=== PATIENT | female | born 1965 | race Caucasian/White ===

== ENCOUNTER 2018-03-20 12:19 | Inpatient (IN) | payer BC ==
[~2018-03-20] VITALS: Ht 170.2 cm; Wt 88.2 kg
[~2018-03-20 12:19] MED LIST: ALBU8.5H8 IH; ALPR0.25 PO; ALPR1TAB2 PO; AMLO5TAB2 PO; AZIT250T PO; BENZ100C PO; CETI10TA22 PO; CIPR500T94 PO; DEXT30CA6 PO; DIPH25CA58 PO; HYDR-2680 PO; ISOS60TA2 PO; LORA10TA68 PO; METR500T PO; NYST15CR TP; OMEP20TA63 PO; ONDA4TAB10 PO; ONDA4TAB10 SL; PRED20TA PO; PRED50TA PO; PROM118S5 PO; TRIA15CR50 TP
--- NOTE | 2018-03-20 12:31 | ED.ADGEN ---
Past History Past Medical History: Asthma, Cancer, Hypertension, Other Past Surgical History: Appendectomy, , Hysterectomy, Other Alcohol Use: None Drug Use: None Adult General Chief Complaint Chief Complaint chest pain, left arm numbness HPI HPI She has a prior history of TIA worked up 2 years ago at . Thirty minutes prior to presentation while at the library, she noted onset of left-sided numbness and weakness with difficulty with her speech. She also noted substernal chest pain without any radiation or shortness of breath. Review of Systems Review of Systems Constitutional: Denies fever or chills Eyes: Denies change in visual acuity, redness, or eye pain HENT: Denies nasal congestion or sore throat Respiratory: Denies cough or shortness of breath Cardiovascular: Chest pain-non radiating, no palpitations GI: Denies abdominal pain, nausea, vomiting, bloody stools or diarrhea : Denies dysuria or hematuria Musculoskeletal: Denies back pain or joint pain Integument: Denies rash or skin lesions Neurologic: Denies headache, with LUE weakness with numbness Endocrine: Denies polyuria or polydipsia All other systems were reviewed and found to be within normal limits, except as documented in this note. Current Medications Current Medications Current Medications Medications (Trade) Dose Ordered Sig/Steph Start Time Stop Time Status Last Admin Dose Admin Acetaminophen (Tylenol) 1,000 mg 1X ONCE 03/20/18 15:15 03/20/18 15:16 DC 03/20/18 14:54 1,000 MG Aspirin (Children'S Aspirin) 324 mg 1X ONCE 03/20/18 15:30 03/20/18 15:31 DC 03/20/18 15:51 324 MG Allergies Allergies Allergies Coded Allergies Type Severity Reaction Last Updated Verified Iodine and Iodide Containing Produc Allergy Severe 05/03/15 No Physical Exam Physical Exam Constitutional: Well developed, well nourished, no acute distress, non-toxic appearance. HENT: Normocephalic, atraumatic, bilateral external ears normal, oropharynx moist, no oral exudates, nose normal. Eyes: PERRLA, EOMI, conjunctiva normal, no discharge. Neck: Normal range of motion, no tenderness, supple, no stridor. Cardiovascular:Heart rate regular rhythm, no murmur Lungs & Thorax: Bilateral breath sounds clear to auscultation Abdomen: Bowel sounds normal, soft, no tenderness, no masses, no pulsatile masses. Skin: Warm, dry, no erythema, no rash. Back: No tenderness, no CVA tenderness. Extremities: No tenderness, no cyanosis, no clubbing, ROM intact, no edema. Neurologic: Alert and oriented X 3, normal motor function, normal sensory function, no focal deficits noted. Speech is normal. Cranial nerves II through XII are intact. Strength is 5/5 right upper extremity 4/5 left upper extremity on flute grinder testing. Patient has no pronator drift. Finger nose finger is intact. Sensation is intact to light touch and position sense bilateral upper an lower extremities equal and symmetric. Patient has no lower extremity drift. NIH score is 0. Psychologic: Affect normal, judgement normal, mood normal. Current Patient Data Vital Signs Vital Signs Date Time Temp Pulse Resp B/P (MAP) Pulse Ox O2 Delivery O2 Flow Rate FiO2 03/20/18 15:40 68 20 132/81 (98) 97 03/20/18 15:00 Room Air 03/20/18 12:21 98.5 Lab Results Laboratory Tests Test 03/20/18 12:39 03/20/18 12:40 03/20/18 14:53 Glucose (Fingerstick) 114 mg/dL (70-99) H White Blood Count 7.3 x10^3/uL (4.0-11.0) Red Blood Count 3.83 x10^6/uL (3.50-5.40) Hemoglobin 12.1 g/dL (12.0-15.5) Hematocrit 36.3 % (36.0-47.0) Mean Corpuscular Volume 95 fL (79-100) Mean Corpuscular Hemoglobin 32 pg (25-35) Mean Corpuscular Hemoglobin Concent 33 g/dL (31-37) Red Cell Distribution Width 14.4 % (11.5-14.5) Platelet Count 151 x10^3/uL (140-400) Neutrophils (%) (Auto) 50 % (31-73) Lymphocytes (%) (Auto) 43 % (24-48) Monocytes (%) (Auto) 4 % (0-9) Eosinophils (%) (Auto) 2 % (0-3) Basophils (%) (Auto) 1 % (0-3) Neutrophils # (Auto) 3.6 x10^3uL (1.8-7.7) Lymphocytes # (Auto) 3.2 x10^3/uL (1.0-4.8) Monocytes # (Auto) 0.3 x10^3/uL (0.0-1.1) Eosinophils # (Auto) 0.2 x10^3/uL (0.0-0.7) Basophils # (Auto) 0.0 x10^3/uL (0.0-0.2) D-Dimer (Corrie) 0.34 mg/L (0.00-0.50) Sodium Level 141 mmol/L (136-145) Potassium Level 3.6 mmol/L (3.5-5.1) Chloride Level 108 mmol/L (98-107) H Carbon Dioxide Level 27 mmol/L (21-32) Anion Gap 6 (6-14) Blood Urea Nitrogen 14 mg/dL (7-20) Creatinine 1.2 mg/dL (0.6-1.0) H Estimated GFR (Cockcroft-Gault) 47.0 BUN/Creatinine Ratio 12 (6-20) Glucose Level 122 mg/dL (70-99) H Calcium Level 8.7 mg/dL (8.5-10.1) Total Bilirubin 0.8 mg/dL (0.2-1.0) Aspartate Amino Transferase (AST) 56 U/L (15-37) H Alanine Aminotransferase (ALT) 22 U/L (14-59) Alkaline Phosphatase 110 U/L (46-116) Troponin I Quantitative < 0.017 ng/mL (0-0.055) LI-Dgs-K-Type Natriuretic Peptide 1647 pg/mL (0-124) H Total Protein 7.2 g/dL (6.4-8.2) Albumin 3.7 g/dL (3.4-5.0) Albumin/Globulin Ratio 1.1 (1.0-1.7) Lipase 258 U/L (73-393) Urine Collection Type Unknown Urine Color Yellow Urine Clarity Clear Urine pH 6.0 Urine Specific [place] 1.015 Urine Protein Neg (NEG-TRACE) Urine Glucose (UA) Neg mg/dL (NEG) Urine Ketones (Stick) Neg mg/dL (NEG) Urine Blood Neg (NEG) Urine Nitrite Neg (NEG) Urine Bilirubin Neg (NEG) Urine Urobilinogen Dipstick 0.2 mg/dL (0.2 mg/dL) Urine Leukocyte Esterase Neg (NEG) Urine RBC Occ /HPF (0-2) Urine WBC 1-4 /HPF (0-4) Urine Squamous Epithelial Cells None /LPF Urine Bacteria 0 /HPF (0-FEW) Urine Mucus Slight /LPF EKG EKG 12:21 ECG NSR @ 71 LVH, LAFB, T wave changes and occasion PVCs Radiology/Procedures Radiology/Procedures [address] [address] IMAGING REPORT Signed PATIENT: NATHALIA MCCRAY ACCOUNT: [id number] : 1965 LOCATION: ER AGE: 52 SEX: F EXAM STATUS: PRE ER ORD. PHYSICIAN: PRACHI CHICAS MD REASON: Left UE weakness PROCEDURE: CT CODE STROKE HEAD WO CT Head W/O Contrast: History: code stroke, lt side numbness with weakness, hx of stroke Comparison: none Axial images were obtained without contrast. The aranda and white matter appears normal and symmetrical for the patients age. There is no mass effect, extraaxial fluid collections or hydrocephalus. There is no gross bleed. There is no focal loss of aranda-white matter distinction to suggest acute ischemia, i.e. stroke. Impression: No acute findings. End impression These results were called to Dr. CHICAS at the time of dictation. PQRS Compliance Statement: One or more of the following individualized dose reduction techniques were utilized for this examination: 1. Automated exposure control 2. Adjustment of the mA and/or kV according to patient size 3. Use of iterative reconstruction technique Electronically signed by: Sean Fitzpatrick III, MD (03/20/2018 12:58 PM) [facility] DICTATED AND SIGNED BY: SEAN FITZPATRICK III, MD DATE: 03/20/18 8635 CC: PRACHI CHICAS MD; AYDEN RODRIGUEZ ~ [address] [address] IMAGING REPORT Signed PATIENT: NATHALIA MCCRAY ACCOUNT: [id number] : 1965 LOCATION: ER AGE: 52 SEX: F EXAM STATUS: PRE ER ORD. PHYSICIAN: PRACHI CHICAS MD REASON: chest pain PROCEDURE: CHEST AP ONLY CHEST AP ONLY Clinical History: chest pain x 1 day, hx of strokes Technique: AP view of the chest was obtained at 03/20/2018 12:36 PM. Comparison: May 03, 2015. Findings: The cardiomediastinal silhouette is normal. The pulmonary vasculature is normal. The lungs and pleural margins are clear. Impression: No evidence of an acute cardiopulmonary process. Electronically signed by: Sean Fitzpatrick III, MD (03/20/2018 1:16 PM) [facility] DICTATED AND SIGNED BY: SEAN FITZPATRICK III, MD DATE: 03/20/18 0448 CC: PRACHI CHICAS MD; AYDEN RODRIGUEZ ~ Course & Med Decision Making Course & Med Decision Making Patient presets with chest pain, left arm numbness and weakness DDx-ACS, Pe, TIA, CVA, anxiety, conversion disorder The patient was stable in the ED. ECG and troponin showed no evidence of ACS. Noting history of left arm numbness, weakness with speech difficulty, code stroke was called. Head CT scan was unremarkable. NIH score-0 Patient's left arm symptoms waxed and waned and varied with effort. Her numbness was subjective. Labs were unremarkable. 12:[address] scan unremarkable as per Radiology Patient insisted on transfer to for further evaluation, despite available services at [facility]. 14:00 Discussed with transfer center. The patient has been admitted for similar symptoms twice in November 2017 and twice in January 2018. Patient was diagnosed with conversion disorder. doesn't have bed availability to accept transfer. 15:[address] Crump hospitalist who agreed with admission. Recommends neurology and psychiatric consultations. There is concern the patient maybe having conversion disorder. Patient was given aspirin and admitted to telemetry for further evaluation. Final Impression Final Impression Clinical Impression Chest pain Left Arm Paresthesia Dragon Disclaimer Dragon Disclaimer This electronic medical record was generated, in whole or in part, using a voice recognition dictation system. Departure Departure: Impression: Primary Impression: Paresthesia of left arm Additional Impression: Chest pain Disposition: ADMITTED INPATIENT Condition: STABLE Referrals: DIAN JOSEPH MD, CLARKE J MD Mar 20, 2018 12:31
[2018-03-20 12:52] LABS: BASO % 1 % (0-3); EOS # 0.2 x10^3/uL (0.0-0.7); EOS % 2 % (0-3); HEMATOCRIT 36.3 % (36.0-47.0); HEMOGLOBIN 12.1 g/dL (12.0-15.5); LYMPH # 3.2 x10^3/uL (1.0-4.8); LYMPH % 43 % (24-48); MEAN CORPUSCULAR HEMOGLOBIN 32 pg (25-35); MEAN CORPUSCULAR HGB CONC 33 g/dL (31-37); MEAN CORPUSCULAR VOLUME 95 fL (79-100); MONO # 0.3 x10^3/uL (0.0-1.1); MONO % 4 % (0-9); NEUT # 3.6 x10^3uL (1.8-7.7); NEUT % 50 % (31-73); PLATELET COUNT 151 x10^3/uL (140-400); RED BLOOD COUNT 3.83 x10^6/uL (3.50-5.40); RED CELL DISTRIBUTION WIDTH 14.4 % (11.5-14.5); WHITE BLOOD COUNT 7.3 x10^3/uL (4.0-11.0)
--- NOTE | 2018-03-20 13:01 | RAD ---
CT Head W/O Contrast: History: code stroke, lt side numbness with weakness, hx of stroke Comparison: none Axial images were obtained without contrast. The aranda and white matter appears normal and symmetrical for the patients age. There is no mass effect, extraaxial fluid collections or hydrocephalus. There is no gross bleed. There is no focal loss of aranda-white matter distinction to suggest acute ischemia, i.e. stroke. Impression: No acute findings. End impression These results were called to Dr. CHICAS at the time of dictation. PQRS Compliance Statement: One or more of the following individualized dose reduction techniques were utilized for this examination: 1. Automated exposure control 2. Adjustment of the mA and/or kV according to patient size 3. Use of iterative reconstruction technique Electronically signed by: Dmitriy Howe III, MD (03/20/2018 12:58 PM) [facility]
[2018-03-20 13:12] LABS: ALBUMIN 3.7 g/dL (3.4-5.0); ALBUMIN/GLOBULIN RATIO 1.1 (1.0-1.7); CALCIUM 8.7 mg/dL (8.5-10.1); CREATININE 1.2 mg/dL (0.6-1.0); POTASSIUM 3.6 mmol/L (3.5-5.1); TOTAL BILIRUBIN 0.8 mg/dL (0.2-1.0); TOTAL PROTEIN 7.2 g/dL (6.4-8.2)
--- NOTE | 2018-03-20 13:19 | RAD ---
CHEST AP ONLY Clinical History: chest pain x 1 day, hx of strokes Technique: AP view of the chest was obtained at 03/20/2018 12:36 PM. Comparison: May 03, 2015. Findings: The cardiomediastinal silhouette is normal. The pulmonary vasculature is normal. The lungs and pleural margins are clear. Impression: No evidence of an acute cardiopulmonary process. Electronically signed by: Dmitriy Howe III, MD (03/20/2018 1:16 PM) [facility]
--- NOTE | 2018-03-20 13:43 | EKG ---
[address] [address] Test Date: 2018-03-20 Test Time: 12:21:30 Pat Name: NATHALIA MCCRAY Department: Room: Gender: F Urology Nurse: MCKENZIE : 1965 Requested By: PRACHI CHICAS Order Number: [id number] Reading MD: Measurements Intervals [place] Rate: 71 P: -54 FL: 194 QRS: -31 QRSD: 108 T: -25 QT: 438 QTc: 476 Interpretive Statements SINUS RHYTHM COMPLEX(ES) WITH ABERRANT INTRAVENTRICULAR CONDUCTION ABNORMAL LEFT AXIS DEVIATION LEFT ANTERIOR FASCICULAR BLOCK LEFT VENTRICULAR HYPERTROPHY T ABNORMALITY IN INFERIOR LEADS PROLONGED QT ABNORMAL ECG RI6.01 No previous ECG available for comparison
[2018-03-20] MEDS ORDERED: ACETAMINOPHEN 500 MG TABLET PO ONE (15:15)
[2018-03-20 15:24] LABS: BACTERIA,URINE 0 /HPF (0-FEW); BILIRUBIN,URINE NEG (NEG); CLARITY,URINE CLEAR; COLOR,URINE YELLOW; GLUCOSE,URINE NEG (NEG); NITRITE,URINE NEG (NEG); RBC,URINE OCC /HPF (0-2); UROBILINOGEN,URINE 0.2 mg/dL (0.2 mg/dL)
[2018-03-20] MEDS ORDERED: ASPIRIN 81 MG TAB.CHEW PO ONE (15:30)
[2018-03-20 16:57] VITALS: BP 119/67
[2018-03-20] MEDS ORDERED: NITR0.4T22 SL (17:43)
[2018-03-20] MEDS ORDERED: ASPI-630 PO (17:43)
[2018-03-20] MEDS ORDERED: IBUP800T19 PO (17:43)
[2018-03-20] MEDS ORDERED: ALPR1TAB2 PO (17:43)
[2018-03-20] MEDS ORDERED: HYDR-2766 PO (17:43)
[2018-03-20] MEDS ORDERED: ALPRAZolam 0.5 MG TABLET PO PRN (19:30)
[2018-03-20] MEDS ORDERED: NITROGLYCERIN SUBLINGUAL 0.4 MG BOTTLE OF 25. SL PRN (19:30)
[2018-03-20] MEDS: HYDROcodone/APAP 10/325 1 TAB TABLET PO PRN (19:40)
[2018-03-20 19:54] VITALS: BP 97/58
--- NOTE | 2018-03-20 21:28 | PDOC ---
Exam Note: Marcos Note: Please also refer to the separate dictated note~for this date of service dictated separately.~Patient seen individually. Discussed the patient with Nursing staff reviewed the chart.~Reviewed interim history and current functioning. Reviewed vital signs,~Labs/ Radiology~and current medications noted below. Continue current treatment with the changes noted in the dictated addendum note Assessment: Vital Signs: Vital Signs Date Time Temp Pulse Resp B/P (MAP) Pulse Ox O2 Delivery O2 Flow Rate FiO2 03/20/18 20:10 Room Air 03/20/18 19:54 98.0 62 18 97/58 (71) 97 Labs: Laboratory Tests Test 03/20/18 12:39 03/20/18 12:40 03/20/18 14:53 Glucose (Fingerstick) 114 mg/dL (70-99) H White Blood Count 7.3 x10^3/uL (4.0-11.0) Red Blood Count 3.83 x10^6/uL (3.50-5.40) Hemoglobin 12.1 g/dL (12.0-15.5) Hematocrit 36.3 % (36.0-47.0) Mean Corpuscular Volume 95 fL (79-100) Mean Corpuscular Hemoglobin 32 pg (25-35) Mean Corpuscular Hemoglobin Concent 33 g/dL (31-37) Red Cell Distribution Width 14.4 % (11.5-14.5) Platelet Count 151 x10^3/uL (140-400) Neutrophils (%) (Auto) 50 % (31-73) Lymphocytes (%) (Auto) 43 % (24-48) Monocytes (%) (Auto) 4 % (0-9) Eosinophils (%) (Auto) 2 % (0-3) Basophils (%) (Auto) 1 % (0-3) Neutrophils # (Auto) 3.6 x10^3uL (1.8-7.7) Lymphocytes # (Auto) 3.2 x10^3/uL (1.0-4.8) Monocytes # (Auto) 0.3 x10^3/uL (0.0-1.1) Eosinophils # (Auto) 0.2 x10^3/uL (0.0-0.7) Basophils # (Auto) 0.0 x10^3/uL (0.0-0.2) D-Dimer (Corrie) 0.34 mg/L (0.00-0.50) Sodium Level 141 mmol/L (136-145) Potassium Level 3.6 mmol/L (3.5-5.1) Chloride Level 108 mmol/L (98-107) H Carbon Dioxide Level 27 mmol/L (21-32) Anion Gap 6 (6-14) Blood Urea Nitrogen 14 mg/dL (7-20) Creatinine 1.2 mg/dL (0.6-1.0) H Estimated GFR (Cockcroft-Gault) 47.0 BUN/Creatinine Ratio 12 (6-20) Glucose Level 122 mg/dL (70-99) H Calcium Level 8.7 mg/dL (8.5-10.1) Total Bilirubin 0.8 mg/dL (0.2-1.0) Aspartate Amino Transferase (AST) 56 U/L (15-37) H Alanine Aminotransferase (ALT) 22 U/L (14-59) Alkaline Phosphatase 110 U/L (46-116) Troponin I Quantitative < 0.017 ng/mL (0-0.055) DZ-Gcq-Y-Type Natriuretic Peptide 1647 pg/mL (0-124) H Total Protein 7.2 g/dL (6.4-8.2) Albumin 3.7 g/dL (3.4-5.0) Albumin/Globulin Ratio 1.1 (1.0-1.7) Lipase 258 U/L (73-393) Urine Collection Type Unknown Urine Color Yellow Urine Clarity Clear Urine pH 6.0 Urine Specific [place] 1.015 Urine Protein Neg (NEG-TRACE) Urine Glucose (UA) Neg mg/dL (NEG) Urine Ketones (Stick) Neg mg/dL (NEG) Urine Blood Neg (NEG) Urine Nitrite Neg (NEG) Urine Bilirubin Neg (NEG) Urine Urobilinogen Dipstick 0.2 mg/dL (0.2 mg/dL) Urine Leukocyte Esterase Neg (NEG) Urine RBC Occ /HPF (0-2) Urine WBC 1-4 /HPF (0-4) Urine Squamous Epithelial Cells None /LPF Urine Bacteria 0 /HPF (0-FEW) Urine Mucus Slight /LPF Current Medications: Meds: Current Medications Acetaminophen (Tylenol) 1,000 mg 1X ONCE PO Last administered on 7/28/18at 14: 54; Start 03/20/18 at 15:15; Stop 03/20/18 at 15:16; Status DC Aspirin (Children'S Aspirin) 324 mg 1X ONCE PO Last administered on 03/20/18at 15:51; Start 03/20/18 at 15:30; Stop 03/20/18 at 15:31; Status DC Nitroglycerin (Nitrostat) 0.4 mg PRN Q15MIN PRN SL CHEST PAIN; Start 03/20/18 at 19:30 Alprazolam (Xanax) 1 mg PRN QHS PRN PO ANXIETY / AGITATION; Start 03/20/18 at 19:30 Aspirin (Children'S Aspirin) 81 mg DAILYWBKFT PO ; Start 03/21/18 at 08:00 Acetaminophen/ Hydrocodone Bitart (Lortab 10/325) 1 tab PRN Q6HRS PRN PO PAIN Last administered on 03/20/18at 19:40; Start 03/20/18 at 19:30 Ibuprofen (Motrin) 800 mg DAILY PO ; Start 03/21/18 at 09:00 Pneumococcal Polyvalent Vaccine (Pneumovax 23) 0.5 ml ONCE ONCE VAX IM ; Start 03/21/18 at 09:00; Stop 03/21/18 at 09:01 Active Scripts Active Reported Ibuprofen 800 Mg Tablet 800 Mg PO DAILY NITROGLYCERIN SubLingual (Nitroglycerin) 0.4 Mg Tab.subl 0.4 Mg SL PRN PRN Xanax (Alprazolam) 1 Mg Tablet 1 Mg PO PRN QHS PRN Hydrocodone-Apap 10-325 (Hydrocodone Bit/Acetaminophen) 1 Each Tablet 1 Tab PO PRN Q6HRS PRN Aspirin 81 Mg Tab.chew 81 Mg PO DAILY I have reviewed the current psychotropics carefully including drug interactions. Risk benefit ratio favors no change other than as noted in my dictated progress note. Diagnosis: Problems: (1) Anxiety disorder (2) Bipolar affective disorder, mixed (3) Paresthesia of left arm TINY ADDISON MD Mar 20, 2018 21:28
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
[2018-03-20 22:23] VITALS: BP 107/67
[2018-03-21] MEDS: IBUPROFEN 800 MG TABLET. PO PRN ×3 (00:08→19:21)
[2018-03-21] MEDS: HYDROcodone/APAP 10/325 1 TAB TABLET PO PRN ×2 (01:40→12:46)
[2018-03-21 05:32] VITALS: BP 91/56
[2018-03-21] MEDS: ASPIRIN 81 MG TAB.CHEW PO SCH (08:42)
[2018-03-21] MEDS ORDERED: IBUPROFEN 800 MG TABLET. PO SCH (09:00)
[2018-03-21] MEDS ORDERED: PNEUMOC CONJ VACC 23-VALENT 0.5 ML VIAL. VAX IM ONE (09:00)
[2018-03-21 10:59] VITALS: BP 93/54
[2018-03-21 11:25] LABS: BASO # 0.1 x10^3/uL (0.0-0.2); BASO % 1 % (0-3); EOS # 0.1 x10^3/uL (0.0-0.7); EOS % 3 % (0-3); HEMATOCRIT 34.4 % (36.0-47.0); HEMOGLOBIN 11.5 g/dL (12.0-15.5); LYMPH # 2.3 x10^3/uL (1.0-4.8); LYMPH % 43 % (24-48); MEAN CORPUSCULAR HEMOGLOBIN 32 pg (25-35); MEAN CORPUSCULAR HGB CONC 34 g/dL (31-37); MEAN CORPUSCULAR VOLUME 95 fL (79-100); MONO # 0.3 x10^3/uL (0.0-1.1); MONO % 5 % (0-9); NEUT # 2.6 x10^3uL (1.8-7.7); NEUT % 49 % (31-73); PLATELET COUNT 140 x10^3/uL (140-400); RED CELL DISTRIBUTION WIDTH 14.8 % (11.5-14.5); WHITE BLOOD COUNT 5.4 x10^3/uL (4.0-11.0)
[2018-03-21 11:30] LABS: CALCIUM 8.3 mg/dL (8.5-10.1); POTASSIUM 4.2 mmol/L (3.5-5.1)
--- NOTE | 2018-03-21 13:08 | PDOC1 ---
History of Present Illness History of Present Illness This 52-year-old female comes emergency department complaining of speech difficulty, left arm and face numbness, left arm weakness and chest discomfort while browsing at the library. She was extensively evaluated in the emergency department her NIH score was reportedly [address] of the head and CXR were negative. The emergency department physician reports that her physical exam did change with effort throughout her ED course, that intermittently he noted her to voluntarily use the left hand while at other times she reported inability to do so. At her request he did contact who gave a history of multiple similar admissions extensively evaluated and discharge diagnosis of conversion disorder. She reports that she typically follows with however says when she called them at symptom onset they advised she go to the nearest facility for evaluation and possible transfer. She complained of sudden onset tingling on the left side of her face with associated numbness and speech difficulty/slur, also anterior chest pain and left arm weakness numbness and tingling. She's apparently had 3 prior episodes of nearly identical symptoms in the past few years and has been extensively evaluated at . Denies headache, recent stressors, depressed mood, suicidal/homicidal ideation, or recent medication change. I find the patient sitting up in bed holding her cell phone in her left hand either talking on speaker phone or dictating, when I enter her left hand is lowered to the bed and phone turned off. She says that her left arm weakness is persistent and is very eager to transfer to . Her focus on transferring to makes her somewhat of a difficult historian and I did notify her that we would call to see about bed availability. She denies any new symptoms since presented to the emergency department. The nurse taking care of her describes some mood instability as the patient has had several episodes of becoming very angry with her screaming at her and then calling her into apologize. At one point "this is how I always talk" responding to RN questioning. Her BNP was 1647 with no clinical evidence of failure, otherwise ED and morning labs and her VS have been unremarkable see below. Chief Complaint: left arm weakness Allergies: Coded Allergies: Iodine and Iodide Containing Produc (Unverified Allergy, Severe, 05/03/15) Past Medical History Cardiac: HTN Pulmonary: Asthma Heme/Onc: Cancer Psych: Anxiety, Bipolar, Other (conversion) Rheumatologic: No pertinent hx Infectious disease: No pertinent hx Dermatology: No pertinent hx Past Surgical History: Appendectomy, Hysterectomy Family History: No pertinent hx Past Social History Smoke: No Occupation: used to work at the [employer] Alcohol: none Drugs: None Review of Systems Review Of Systems Fourteen system , review of systems has been reviewed. See HPI for pertinent positives and negative responses, other leija all other systems are negative, non pertinent or non contributory Constitutional: No: Fever, Chills, Sweats Eyes: No: Blurry vision, Decreased vision, Eye Pain, Loss of vision, Photophobia ENT: No: Ear pain, Nose pain, Throat pain Respiratory: No: Cough, Shortness of breath, Wheezing Cardiovascular: No: Chest Pain, Palpitations, Orthopnea Gastrointestinal: No: Nausea, Vomiting, Abdominal Pain, Diarrhea Genitourinary: No: Dysuria, Flank Pain, Genital Discharge Musculoskeletal: YES: Muscular Weakness; No: Gait Disturbance, Joint Pain, Joint Swelling, Muscle Pain SKIN: No: Warm, Dry, No Rashes Neurological: YES: Other (HPI) Medications Current Medications Acetaminophen (Tylenol) 1,000 mg 1X ONCE PO Last administered on 03/20/18at 14: 54; Start 03/20/18 at 15:15; Stop 03/20/18 at 15:16; Status DC Aspirin (Children'S Aspirin) 324 mg 1X ONCE PO Last administered on 03/20/18at 15:51; Start 03/20/18 at 15:30; Stop 03/20/18 at 15:31; Status DC Nitroglycerin (Nitrostat) 0.4 mg PRN Q15MIN PRN SL CHEST PAIN; Start 03/20/18 at 19:30 Alprazolam (Xanax) 1 mg PRN QHS PRN PO ANXIETY / AGITATION Last administered on 03/21/18at 03:21; Start 03/20/18 at 19:30 Aspirin (Children'S Aspirin) 81 mg DAILYWBKFT PO Last administered on at 08:42; Start 03/21/18 at 08:00 Acetaminophen/ Hydrocodone Bitart (Lortab 10/325) 1 tab PRN Q6HRS PRN PO PAIN Last administered on 03/21/18at 12:46; Start 03/20/18 at 19:30 Ibuprofen (Motrin) 800 mg DAILY PO ; Start 03/21/18 at 09:00; Stop 03/21/18 at 09:00; Status DC Pneumococcal Polyvalent Vaccine (Pneumovax 23) 0.5 ml ONCE ONCE VAX IM ; Start 03/21/18 at 09:00; Stop 03/21/18 at 09:01; Status DC Ibuprofen (Motrin) 800 mg PRN Q8HRS PRN PO INFLAMMATION Last administered on at 08:42; Start 03/20/18 at 23:15 Active Scripts Active Reported Ibuprofen 800 Mg Tablet 800 Mg PO DAILY NITROGLYCERIN SubLingual (Nitroglycerin) 0.4 Mg Tab.subl 0.4 Mg SL PRN PRN Xanax (Alprazolam) 1 Mg Tablet 1 Mg PO PRN QHS PRN Hydrocodone-Apap 10-325 (Hydrocodone Bit/Acetaminophen) 1 Each Tablet 1 Tab PO PRN Q6HRS PRN Aspirin 81 Mg Tab.chew 81 Mg PO DAILY Exam Vital Signs Vital Signs Date Time Temp Pulse Resp B/P (MAP) Pulse Ox O2 Delivery O2 Flow Rate FiO2 03/21/18 12:46 96 Room Air 03/21/18 10:59 97.9 60 18 93/54 (67) General Appearance: Alert, Oriented X3, No acute distress HEENT: Atraumatic, PERRLA, EOMI, Mucous membr. moist/pink Respiratory: Clear to auscultation, Normal air movement Heart: Regular rate, No murmurs Abdominal: Normal bowel sounds, Soft, No tenderness Extremities: No clubbing, No cyanosis, No edema, Normal pulses Neuro: Other (decreased sensory at the left face as well as the left upper extremity, no active movement involving the left arm otherwise appears to be neurologically intact.) Psych/Mental Status: Other (rapid speech with flight of ideas and tangential patterns) Assessment/Plan Assessment/Plan A: Left arm paraesthesia Chest Pain h/o multiple similar evaluations dx: conversion disorder P: Observation admission-patient did request transfer to [facility] RN called and still no bed availability Neurology and Psychiatry consultations COURSE Allergies Coded Allergies Type Severity Reaction Last Updated Verified Iodine and Iodide Containing Produc Allergy Severe 05/03/15 No Laboratory Tests Test 03/20/18 14:53 03/21/18 11:15 Urine Collection Type Unknown Urine Color Yellow Urine Clarity Clear Urine pH 6.0 Urine Specific [place] 1.015 Urine Protein Neg (NEG-TRACE) Urine Glucose (UA) Neg mg/dL (NEG) Urine Ketones (Stick) Neg mg/dL (NEG) Urine Blood Neg (NEG) Urine Nitrite Neg (NEG) Urine Bilirubin Neg (NEG) Urine Urobilinogen Dipstick 0.2 mg/dL (0.2 mg/dL) Urine Leukocyte Esterase Neg (NEG) Urine RBC Occ /HPF (0-2) Urine WBC 1-4 /HPF (0-4) Urine Squamous Epithelial Cells None /LPF Urine Bacteria 0 /HPF (0-FEW) Urine Mucus Slight /LPF White Blood Count 5.4 x10^3/uL (4.0-11.0) Red Blood Count 3.60 x10^6/uL (3.50-5.40) Hemoglobin 11.5 g/dL (12.0-15.5) Hematocrit 34.4 % (36.0-47.0) Mean Corpuscular Volume 95 fL (79-100) Mean Corpuscular Hemoglobin 32 pg (25-35) Mean Corpuscular Hemoglobin Concent 34 g/dL (31-37) Red Cell Distribution Width 14.8 % (11.5-14.5) Platelet Count 140 x10^3/uL (140-400) Neutrophils (%) (Auto) 49 % (31-73) Lymphocytes (%) (Auto) 43 % (24-48) Monocytes (%) (Auto) 5 % (0-9) Eosinophils (%) (Auto) 3 % (0-3) Basophils (%) (Auto) 1 % (0-3) Neutrophils # (Auto) 2.6 x10^3uL (1.8-7.7) Lymphocytes # (Auto) 2.3 x10^3/uL (1.0-4.8) Monocytes # (Auto) 0.3 x10^3/uL (0.0-1.1) Eosinophils # (Auto) 0.1 x10^3/uL (0.0-0.7) Basophils # (Auto) 0.1 x10^3/uL (0.0-0.2) Sodium Level 144 mmol/L (136-145) Potassium Level 4.2 mmol/L (3.5-5.1) Chloride Level 110 mmol/L (98-107) Carbon Dioxide Level 26 mmol/L (21-32) Anion Gap 8 (6-14) Blood Urea Nitrogen 19 mg/dL (7-20) Creatinine 1.0 mg/dL (0.6-1.0) Estimated GFR (Cockcroft-Gault) 58.0 Glucose Level 103 mg/dL (70-99) Calcium Level 8.3 mg/dL (8.5-10.1) Troponin I Quantitative < 0.017 ng/mL (0-0.055) Current Medications Medications (Trade) Dose Ordered Sig/Steph Route PRN Reason Start Time Stop Time Status Last Admin Dose Admin Acetaminophen (Tylenol) 1,000 mg 1X ONCE PO 03/20/18 15:15 03/20/18 15:16 DC 03/20/18 14:54 Aspirin (Children'S Aspirin) 324 mg 1X ONCE PO 03/20/18 15:30 03/20/18 15:31 DC 03/20/18 15:51 Nitroglycerin (Nitrostat) 0.4 mg PRN Q15MIN PRN SL CHEST PAIN 03/20/18 19:30 Alprazolam (Xanax) 1 mg PRN QHS PRN PO ANXIETY / AGITATION 03/20/18 19:30 03/21/18 03:21 Aspirin (Children'S Aspirin) 81 mg DAILYWBKFT PO 03/21/18 08:00 03/21/18 08:42 Acetaminophen/ Hydrocodone Bitart (Lortab 10/325) 1 tab PRN Q6HRS PRN PO PAIN 03/20/18 19:30 03/21/18 12:46 Ibuprofen (Motrin) 800 mg DAILY PO 03/21/18 09:00 03/21/18 09:00 DC Pneumococcal Polyvalent Vaccine (Pneumovax 23) 0.5 ml ONCE ONCE VAX IM 03/21/18 09:00 03/21/18 09:01 DC Ibuprofen (Motrin) 800 mg PRN Q8HRS PRN PO INFLAMMATION 03/20/18 23:15 03/21/18 08:42 I & O 03/21/18 00:00 Intake Total 720 ml Balance 720 ml Orders Procedure Category Date Status Time Acetaminophen PHA 03/20/18 Complete (Tylenol) 15:15 Aspirin (Children's PHA 03/20/18 Complete Aspirin) 15:30 [place] Order ADT 03/20/18 Transmitted 15:13 Consult Physician By CONS 03/20/18 Transmitted Name 15:13 Consult Physician By CONS 03/20/18 Transmitted Name 15:13 Admit Orders ADT 03/20/18 Transmitted Admission Screening CONS 03/20/18 Transmitted 18:16 High Risk Dc CONS 03/20/18 Transmitted Readmission 18:16 Sleep Apnea Screening RT 03/21/18 Transmitted 07:00 Cardiac DIET 03/21/18 Transmitted Breakfast Nitroglycerin PHA 03/20/18 In Process Sublingual (Nitrostat) 19:30 Alprazolam (Xanax) PHA 03/20/18 In Process 19:30 Aspirin (Children's PHA 03/21/18 In Process Aspirin) 08:00 Hydrocodone/Apap PHA 03/20/18 In Process 10325 (Lortab ) 19:30 Ibuprofen (Motrin) PHA 03/21/18 Complete 09:00 Pneumoc Conj Vacc PHA 03/21/18 Complete 23-Valent (Pneumovax 2 09:00 Ibuprofen (Motrin) PHA 03/20/18 In Process 23:15 Basic Metabolic Panel LAB 03/21/18 Complete 11:08 Cbc W [employer]od[employer] LAB 03/21/18 Complete 11:08 Troponin I LAB 03/21/18 Complete 11:08 Vital Signs Date Time Temp Pulse Resp B/P (MAP) Pulse Ox O2 Delivery O2 Flow Rate FiO2 03/21/18 12:46 96 Room Air 03/21/18 10:59 97.9 60 18 93/54 (67) REBECA HILL DO Mar 21, 2018 13:08
[2018-03-21] MEDS: ALPRAZolam 0.5 MG TABLET PO PRN ×2 (14:45→23:42)
[2018-03-21 16:28] VITALS: BP 111/62
--- NOTE | 2018-03-21 19:34 | PDOC ---
Exam Note: Marcos Note: Please also refer to the separate dictated note~for this date of service dictated separately.~Patient seen individually. Discussed the patient with Nursing staff reviewed the chart.~Reviewed interim history and current functioning. Reviewed vital signs,~Labs/ Radiology~and current medications noted below. Continue current treatment with the changes noted in the dictated addendum note Assessment: Vital Signs: Vital Signs Date Time Temp Pulse Resp B/P (MAP) Pulse Ox O2 Delivery O2 Flow Rate FiO2 03/21/18 16:28 97.7 54 18 111/62 (78) 96 Room Air I&O Intake and Output 03/21/18 07:00 Intake Total 1120 ml Balance 1120 ml Intake Oral 1120 ml # Voids 1 Labs: Laboratory Tests Test 03/21/18 11:15 White Blood Count 5.4 x10^3/uL (4.0-11.0) Red Blood Count 3.60 x10^6/uL (3.50-5.40) Hemoglobin 11.5 g/dL (12.0-15.5) L Hematocrit 34.4 % (36.0-47.0) L Mean Corpuscular Volume 95 fL (79-100) Mean Corpuscular Hemoglobin 32 pg (25-35) Mean Corpuscular Hemoglobin Concent 34 g/dL (31-37) Red Cell Distribution Width 14.8 % (11.5-14.5) H Platelet Count 140 x10^3/uL (140-400) Neutrophils (%) (Auto) 49 % (31-73) Lymphocytes (%) (Auto) 43 % (24-48) Monocytes (%) (Auto) 5 % (0-9) Eosinophils (%) (Auto) 3 % (0-3) Basophils (%) (Auto) 1 % (0-3) Neutrophils # (Auto) 2.6 x10^3uL (1.8-7.7) Lymphocytes # (Auto) 2.3 x10^3/uL (1.0-4.8) Monocytes # (Auto) 0.3 x10^3/uL (0.0-1.1) Eosinophils # (Auto) 0.1 x10^3/uL (0.0-0.7) Basophils # (Auto) 0.1 x10^3/uL (0.0-0.2) Sodium Level 144 mmol/L (136-145) Potassium Level 4.2 mmol/L (3.5-5.1) Chloride Level 110 mmol/L (98-107) H Carbon Dioxide Level 26 mmol/L (21-32) Anion Gap 8 (6-14) Blood Urea Nitrogen 19 mg/dL (7-20) Creatinine 1.0 mg/dL (0.6-1.0) Estimated GFR (Cockcroft-Gault) 58.0 Glucose Level 103 mg/dL (70-99) H Calcium Level 8.3 mg/dL (8.5-10.1) L Troponin I Quantitative < 0.017 ng/mL (0-0.055) Current Medications: Meds: Current Medications Acetaminophen (Tylenol) 1,000 mg 1X ONCE PO Last administered on 03/20/18at 14: 54; Start 03/20/18 at 15:15; Stop 03/20/18 at 15:16; Status DC Aspirin (Children'S Aspirin) 324 mg 1X ONCE PO Last administered on 03/20/18at 15:51; Start 03/20/18 at 15:30; Stop 03/20/18 at 15:31; Status DC Nitroglycerin (Nitrostat) 0.4 mg PRN Q15MIN PRN SL CHEST PAIN; Start 03/20/18 at 19:30 Alprazolam (Xanax) 1 mg PRN QHS PRN PO ANXIETY / AGITATION Last administered on 03/21/18at 03:21; Start 03/20/18 at 19:30; Stop 03/21/18 at 14:43; Status DC Aspirin (Children'S Aspirin) 81 mg DAILYWBKFT PO Last administered on at 08:42; Start 03/21/18 at 08:00 Acetaminophen/ Hydrocodone Bitart (Lortab 10/325) 1 tab PRN Q6HRS PRN PO PAIN Last administered on 03/21/18at 12:46; Start 03/20/18 at 19:30 Ibuprofen (Motrin) 800 mg DAILY PO ; Start 03/21/18 at 09:00; Stop 03/21/18 at 09:00; Status DC Pneumococcal Polyvalent Vaccine (Pneumovax 23) 0.5 ml ONCE ONCE VAX IM ; Start 03/21/18 at 09:00; Stop 03/21/18 at 09:01; Status DC Ibuprofen (Motrin) 800 mg PRN Q8HRS PRN PO INFLAMMATION Last administered on at 19:21; Start 03/20/18 at 23:15 Alprazolam (Xanax) 1 mg PRN TID PRN PO ANXIETY / AGITATION Last administered on 03/21/18at 14:45; Start 03/21/18 at 14:45 Active Scripts Active Reported Ibuprofen 800 Mg Tablet 800 Mg PO DAILY NITROGLYCERIN SubLingual (Nitroglycerin) 0.4 Mg Tab.subl 0.4 Mg SL PRN PRN Xanax (Alprazolam) 1 Mg Tablet 1 Mg PO PRN QHS PRN Hydrocodone-Apap 10-325 (Hydrocodone Bit/Acetaminophen) 1 Each Tablet 1 Tab PO PRN Q6HRS PRN Aspirin 81 Mg Tab.chew 81 Mg PO DAILY I have reviewed the current psychotropics carefully including drug interactions. Risk benefit ratio favors no change other than as noted in my dictated progress note. Diagnosis: Problems: (1) Bipolar affective disorder, mixed (2) Anxiety disorder (3) Paresthesia of left arm TINY ADDISON MD Mar 21, 2018 19:34
[2018-03-21 20:11] VITALS: BP 108/68
[2018-03-21] MEDS: LURASIDONE 40 MG TABLET. PO SCH (20:58)
[2018-03-21 23:38] VITALS: BP 110/68
[2018-03-21] MEDS: ACETAMINOPHEN 325 MG TABLET PO PRN (23:42)
[2018-03-21] MEDS: HYDROCORTISONE 1% TOPICAL CREAM 30GM TUBE. TP PRN (23:42)
--- NOTE | 2018-03-22 05:09 | CONS ---
DATE OF CONSULTATION: REFERRING PHYSICIAN: Dr. Crump. REASON FOR CONSULTATION: Persistent numbness and weakness of the left side. HISTORY OF PRESENT ILLNESS: This is a 52-year-old right-handed female who was admitted to Emergency Room after she presented with acute onset of left-sided weakness including the face, arm and legs associated with numbness and paresthesia, which has been persistent since last night. In the Emergency Room, the patient was found on different occasions using her phone by a left upper extremity. According to the ER report, the patient has been moving her left upper extremity intermittently despite complaining of persistent weakness and difficulty using her left side. Apparently, the patient had similar episode in 08/2016. Extensive workup done at [facility] and [facility], including a brain MRI, CT scan, which revealed no significant abnormalities and she was diagnosed with possible underlying conversion reactions. 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 Currently, the patient denies any headaches, visual disturbances, nausea or vomiting, but she complains of mild anterior chest wall mainly on the left side. She had an extensive cardiac workup including a cardiac catheterization, which showed no significant coronary artery disease. She was advised to have a stress echo probably as she stated she had a septal defect and pericarditis in the past. Initial nonenhanced head CT scan revealed no acute intracranial process and a chest x-ray revealed no evidence of acute cardiopulmonary process. PAST MEDICAL HISTORY: Significant for recurrent episodes as described above and diagnosed with a conversion disorder, history of anxiety, ovarian cancer diagnosed in 2017 required chemotherapy and she has not had a followup in the last few months, history of hypertension, asthma, and possible bipolar disorder and anxiety disorders. PAST SURGICAL HISTORY: Significant for appendectomy and hysterectomy. SOCIAL HISTORY: She is a single. She denies smoking, alcohol drinking, or illicit drug use. She used to work at [employer]. CURRENT HOSPITAL MEDICATIONS: Alprazolam 1 mg t.i.d., aspirin 81 mg daily, ibuprofen 800 mg q. 8 hours p.r.n., Lortab 10/325 every 6 hours p.r.n., nitroglycerin 0.4 sublingually p.r.n. ALLERGIES: IODINE AND IODINE CONTAINING PRODUCTS. FAMILY HISTORY: Noncontributory. REVIEW OF SYSTEMS: A 10-point review of system was performed and consistent with persistent numbness and weakness of the left side. PHYSICAL EXAMINATION: GENERAL: Well-developed, well-nourished female, not in acute distress. She weighs 188. VITAL SIGNS: Blood pressure 111/62, respiratory rate 18, pulse is 54-60 regular, temperature 97.7, oxygen saturation is 96% on room air. HEENT: Normocephalic, atraumatic, otherwise unremarkable. NECK: Supple. Negative for carotid bruit, lymphadenopathy or thyromegaly. LUNGS: Clear to A and P. CARDIOVASCULAR: Regular rate and rhythm, normal S1, S2. There is no S3, S4 or murmur. ABDOMEN: Soft. Bowel sounds positive. EXTREMITIES: Negative for cyanosis, clubbing or pitting edema. NEUROLOGIC: 1. Mental status: The patient is alert and oriented x 3. Speech is fluent. There is no language dysfunction. Memory, judgment and abstract thinking are normal. The patient denies hallucination or delusion. 2. Cranial nerves: Visual reyes are full. The pupils are reactive to light and accommodation. The extraocular movements are intact. There is no nystagmus. There is no facial motor or sensory deficit. Hearing is intact bilaterally. The palate is elevated symmetrically. Sternocleidomastoid muscles are powerful bilaterally. The patient shrugs her shoulders symmetrically, protrudes her tongue in the midline without fasciculation or atrophy. 3. Motor: No focal muscle bulk was seen. The tone is normal. The patient demonstrates persistent weakness of the left upper and lower extremity compared to that on the right side. Otherwise, the strength elsewhere was 5/5 throughout. 4. Sensory examination revealed diminished pinprick and light touch senses over the left face, upper and lower extremity compared to those on the right side and could be subjective. Deep tendon reflexes were asymmetric with absent Achilles responses. Gait not tested as the patient is able to stand on left side. LABORATORY DATA: CBC revealed white blood cells of 5.4 thousand, hemoglobin 11.5, hematocrit 34.4, platelet count 140,000. Chemistry revealed sodium of 144, potassium 4.2, chloride 110, CO2 of 26, BUN 19, creatinine 1, glucose 103, calcium 9.3. Troponin level is less than 0.017. NPB is elevated at 1647. Urinalysis is negative. Coagulation: D-dimer is normal at 0.34. IMPRESSION: 1. Subjective left-sided weakness and paresthesia with no clear neurological evidence of central nervous system pathology with the previous history of conversion disorders with similar presentation in the past and normal extensive workup, may indicate again a psychogenic source of neurological presentations at this time. 2. Multiple psychiatric problems include anxiety disorders and possible underlying bipolar disorder. 3. Multiple medical problems include history of ovarian cancer, hypertension, and asthma, but currently the patient has been stable. RECOMMENDATION: 1. Continue with current medical and psychiatric care. 2. Physical therapy evaluation. 3. I do not think there is urgency for spinal tap at this time. 4. Followup in Neurology Clinic on an outpatient basis to find out if there is a peripheral source of her symptoms along with the above initial diagnosis. M Nash JOSEPH MD DR: DENILSON/jaron JOB#: [id number] / [id number]
[2018-03-22 05:15] VITALS: BP 135/73
[2018-03-22] MEDS: IBUPROFEN 800 MG TABLET. PO PRN ×2 (06:33→16:48)
[2018-03-22] MEDS: ASPIRIN 81 MG TAB.CHEW PO SCH (08:31)
[2018-03-22] MEDS: HYDROcodone/APAP 10/325 1 TAB TABLET PO PRN (08:39)
[2018-03-22 10:29] VITALS: BP 109/66
[2018-03-22] MEDS: ACETAMINOPHEN 325 MG TABLET PO PRN ×2 (13:00→19:33)
[2018-03-22 15:18] VITALS: BP 103/64
[2018-03-22 18:09] VITALS: BP 128/76
[2018-03-22 19:15] VITALS: BP 114/73
[2018-03-22] MEDS: LURASIDONE 40 MG TABLET. PO SCH (20:44)
[2018-03-22 22:48] VITALS: BP 116/73
[2018-03-23] MEDS ORDERED: ACET325T9 PO (00:02)
[2018-03-23] MEDS ORDERED: ALPR1TAB2 PO (00:02)
[2018-03-23] MEDS ORDERED: HYDR42CR2 TP (00:04)
[2018-03-23] MEDS ORDERED: IBUP800T19 PO (00:05)
[2018-03-23] MEDS ORDERED: LURA40TA PO (00:05)
[2018-03-23] MEDS: HYDROcodone/APAP 10/325 1 TAB TABLET PO PRN ×3 (01:26→20:37)
--- NOTE | 2018-03-23 02:07 | PN ---
DATE: 03/22/2018 REFERRING PHYSICIAN: Dr. Boone. SUBJECTIVE: The patient continues to complain of left-sided weakness, numbness, and paresthesia and global headaches started this morning. She also complains of chest pain without nausea, vomiting, photophobia, or phonophobia. The patient denies any history of migraine headaches in the past. OBJECTIVE: GENERAL: Well-developed, well-nourished female, not in acute distress. VITAL SIGNS: Blood pressure 135/73, respiratory rate 20, pulse is 59, temperature 97.6, oxygen saturation 98% on room air. HEENT: Normocephalic, atraumatic, otherwise unremarkable. NECK: Supple. Negative for carotid bruit, lymphadenopathy, or thyromegaly. LUNGS: Clear to A and P. CARDIOVASCULAR: Regular rate and rhythm, normal S1-S2. ABDOMEN: Soft. Bowel sounds positive. EXTREMITIES: Negative for cyanosis, clubbing, or pitting edema. NEUROLOGIC: Normal mental status and intact cranial nerves. Motor examination reveals subjective left-sided weakness including the upper and lower extremities with the strength is 3/5. The strength elsewhere was 5/5 throughout. Sensory examination reveals subjectively diminished pinprick and light touch senses over the left face, upper and lower extremities compared to those on the right side. Deep tendon reflexes were symmetric and active without pathologic responses. Gait: The patient tried to stand up using a walker. The patient was able to stand up without assistance. She could not make any steps. IMPRESSION: 1. Subjective left-sided hemisensory deficit and hemiparesis with normal recent nonenhanced head CT scan and normal extensive neurological workup done in the past. 2. The patient stated she has a history of heart conditions described as intraventricular septal defect with right to left shunt. No further information available at this time regarding this matter. 3. Multiple psychiatric and medical problems as outlined before. RECOMMENDATIONS: 1. Continue with current management initiated by Dr. Boone and physical therapy. 2. The patient likes to be transferred to to follow up with her eligibility clerk, Dr. Goyal. M Nash JOSEPH MD DR: DENILSON/jaron JOB#: [id number] / [id number]
--- NOTE | 2018-03-23 02:34 | PN ---
DATE: 03/22/2018 SUBJECTIVE: The patient is resting slightly propped up in bed, no apparent distress. She continued to complain of weakness in the left upper and left lower extremity together with numbness. She apparently was admitted before to [facility] and also [facility] and apparently has been extensively investigated and she carries a diagnosis of conversion disorder. I attempted to transfer her to [facility] but apparently they have no beds available at this time and the patient was seen by Dr. Cesar and also by Dr. Fisher and Dr. Fisher recommended doing lumbar puncture; however, Dr. Cesar did not think that there is no urgency in doing that. OBJECTIVE: GENERAL: On examining her today, she looked somewhat pale. No jaundice, cyanosis, or thyromegaly. No jugular venous distension. No limb edema. VITAL SIGNS: Her heart rate was 59, blood pressure 135/73, her temperature was 97.6, respiratory rate was 20, and oxygen saturation was 98% on room air. HEAD, EYES, EARS, NOSE AND THROAT: Showed normocephalic, atraumatic. NECK: Supple. HEART: Showed normal first and second heart sounds. No gallop, rub or murmur. CHEST: Clear to auscultation. No crepitation or rhonchi. ABDOMEN: Distended, soft, and nontender. No guarding or rigidity. No organomegaly. Hernial orifice intact. Bowel sounds normal. NEUROLOGIC: She is awake, alert, and responding appropriately. She continued to complain of weakness in the left upper and left lower extremity, although she said that her weakness in the leg is slightly stronger than the arm. She apparently used a tripod and with the assistance of the nursing informatics clinical analyst managed to walk to the bathroom last night. Her intake over the last 24 hours was 1950, output was 300. LABORATORY DATA: Her lab work as of this morning showed a white cell count of 5400, hemoglobin 11, hematocrit 34, MCV 95 and platelet count of 140,000. Serum sodium was 144, potassium 4.2, chloride 110, bicarbonate 26, anion gap of 8, BUN 19, creatinine 1, estimated GFR was 58 mL per minute. Her glucose was 103, calcium was 8.3. She had 3 sets of cardiac enzymes that were negative. Her D-dimer was 0.34 and urinalysis was unremarkable. ASSESSMENT: Subjective left-sided weakness and paresthesia with no clear neurological evidence of central nervous system pathology. The patient has a history of conversion disorder with similar presentation in the past and normal extensive workup may indicate again a psychogenic source with neurological presentation at this time. The patient has multiple psychiatric disorders including anxiety disorder and possible bipolar disorder. She has also other medical problems including: A. Ovarian cancer. B. Hypertension. C. Bronchial asthma. PLAN: I attempted to transfer her to [facility] but apparently, they have no beds available. We will await the evaluation by physical and occupational therapy and may eventually need to be transferred to a rehab center. RONNIE HAMILTON MD DR: JOHNATHON/jaron JOB#: [id number] / [id number]
--- NOTE | 2018-03-23 04:38 | PN ---
DATE: 03/21/2018 PSYCHIATRIC PROGRESS NOTE: This is a late entry 03/21/2018, covers elements not covered in my initial note. SUBJECTIVE: I met with the patient in the evening at length, reviewed records from Neurology and Psychiatry at [facility], where the patient was admitted recently for similar complaints. Their final diagnosis was conversion disorder, but MRI head had shown some T2 hyperintensities in the alivia and other brain areas, but the lumbar tap does not seem to have been completed, has workup of MS. As detailed in my prior note, the patient does have a history of mood swings, anxiety, being hyperverbal, alternating with symptoms of depression, past history of ADHD and records from also indicated some stimulant drug abuse, probably cocaine briefly in the past. The patient subjectively complains of paresthesias left side of her face, inability to lift her left arm, paresthesias in the left upper extremity. No CV, , pulmonary, eye system symptoms on review. MENTAL STATUS EXAM: The patient is reasonably oriented. Speech is coherent, somewhat pressured typical for her. Abstraction fair, computation impaired, language function intact, attention span short. Mood and affect remain somewhat anxious, labile. No suicidal or homicidal ideation. LABORATORY DATA: Reviewed. IMPRESSION: Probable bipolar 1 disorder, unspecified; history of conversion disorder, rule out multiple sclerosis, rest unchanged from initial note. PLAN: Dr. Cesar is following the patient from a neurological standpoint. We will defer the decision whether to do a lumbar tap or not to Dr. Cesar. It has been recommended the patient initiate a trial on Latuda in the past for her bipolar, depressed symptoms and we will initiate at 40 mg a day as a therapeutic trial since she is having recurrent episodes of symptoms suggestive of mood swings in addition to her somatic symptoms, conversion disorder. We received informed consent. TINY ADDISON MD DR: LAMONTE/jaron JOB#: [id number] / [id number]
[2018-03-23 05:02] VITALS: BP 109/70
[2018-03-23] MEDS: ACETAMINOPHEN 325 MG TABLET PO PRN (07:37)
[2018-03-23] MEDS: ASPIRIN 81 MG TAB.CHEW PO SCH (07:37)
[2018-03-23 11:11] VITALS: BP 153/87
[2018-03-23] MEDS: HYDROCORTISONE 1% TOPICAL CREAM 30GM TUBE. TP PRN ×2 (14:43→20:36)
[2018-03-23] MEDS: IBUPROFEN 800 MG TABLET. PO PRN (14:52)
[2018-03-23 15:19] VITALS: BP 116/75
--- NOTE | 2018-03-23 18:49 | PDOC ---
Exam Note: Marcos Note: Please also refer to the separate dictated note~for this date of service dictated separately.~Patient seen individually. Discussed the patient with Nursing staff reviewed the chart.~Reviewed interim history and current functioning. Reviewed vital signs,~Labs/ Radiology~and current medications noted below. Continue current treatment with the changes noted in the dictated addendum note Assessment: Vital Signs: Vital Signs Date Time Temp Pulse Resp B/P (MAP) Pulse Ox O2 Delivery O2 Flow Rate FiO2 03/23/18 15:19 97.8 60 20 116/75 (89) 96 Room Air I&O Intake and Output 03/23/18 07:00 Intake Total 1600 ml Output Total 1 ml Balance 1599 ml Intake Oral 1600 ml Stool Total 1 ml # Voids 5 Current Medications: Meds: Current Medications Acetaminophen (Tylenol) 1,000 mg 1X ONCE PO Last administered on 03/20/18at 14: 54; Start 03/20/18 at 15:15; Stop 03/20/18 at 15:16; Status DC Aspirin (Children'S Aspirin) 324 mg 1X ONCE PO Last administered on 03/20/18at 15:51; Start 03/20/18 at 15:30; Stop 03/20/18 at 15:31; Status DC Nitroglycerin (Nitrostat) 0.4 mg PRN Q15MIN PRN SL CHEST PAIN; Start 03/20/18 at 19:30 Alprazolam (Xanax) 1 mg PRN QHS PRN PO ANXIETY / AGITATION Last administered on 03/21/18at 03:21; Start 03/20/18 at 19:30; Stop 03/21/18 at 14:43; Status DC Aspirin (Children'S Aspirin) 81 mg DAILYWBKFT PO Last administered on at 07:37; Start 03/21/18 at 08:00 Acetaminophen/ Hydrocodone Bitart (Lortab 10/325) 1 tab PRN Q6HRS PRN PO PAIN Last administered on 03/23/18at 10:50; Start 03/20/18 at 19:30 Ibuprofen (Motrin) 800 mg DAILY PO ; Start 03/21/18 at 09:00; Stop 03/21/18 at 09:00; Status DC Pneumococcal Polyvalent Vaccine (Pneumovax 23) 0.5 ml ONCE ONCE VAX IM ; Start 03/21/18 at 09:00; Stop 03/21/18 at 09:01; Status DC Ibuprofen (Motrin) 800 mg PRN Q8HRS PRN PO INFLAMMATION Last administered on at 14:52; Start 03/20/18 at 23:15 Alprazolam (Xanax) 1 mg PRN TID PRN PO ANXIETY / AGITATION Last administered on 03/21/18at 23:42; Start 03/21/18 at 14:45 Lurasidone HCl (Latuda) 40 mg HS PO Last administered on 03/22/18at 20:44; Start 03/21/18 at 21:00 Acetaminophen (Tylenol) 650 mg Q6HRS PRN PO HEADACHE Last administered on at 07:37; Start 03/21/18 at 23:45 Hydrocortisone (Cortaid) 1 coty TID PRN PRN TP ITCHING Last administered on 03/23at 14:43; Start 03/21/18 at 23:45 Active Scripts Active Amlodipine Besylate 5 Mg Tablet 5 Mg PO DAILY last dose this morning next dose tomorrow morning Isosorbide Mononitrate Er (Isosorbide Mononitrate) 60 Mg Tab.er.24h 60 Mg PO DAILY Promethazine-Codeine Syrup (Promethazine Hcl/Codeine) 118 Ml Syrup 5 Ml PO Q4- 6HRS Proair Hfa Inhaler (Albuterol Sulfate) 8.5 Gm Hfa.aer.ad 2 Puff IH PRN Q4-6HRS PRN Reported Latuda (Lurasidone Hcl) 40 Mg Tablet 40 Mg PO QHS Ibuprofen 800 Mg Tablet 800 Mg PO PRN Q8HRS PRN Cortaid (Hydrocortisone) 42 Gm Cream..g. 1 Coty TP PRN TID PRN Xanax (Alprazolam) 1 Mg Tablet 1 Mg PO PRN TID PRN Tylenol (Acetaminophen) 325 Mg Tablet 650 Mg PO PRN Q6HRS PRN Ibuprofen 800 Mg Tablet 800 Mg PO DAILY NITROGLYCERIN SubLingual (Nitroglycerin) 0.4 Mg Tab.subl 0.4 Mg SL PRN PRN Xanax (Alprazolam) 1 Mg Tablet 1 Mg PO PRN QHS PRN Hydrocodone-Apap 10-325 (Hydrocodone Bit/Acetaminophen) 1 Each Tablet 1 Tab PO PRN Q6HRS PRN Aspirin 81 Mg Tab.chew 81 Mg PO DAILY Prilosec Otc (Omeprazole Magnesium) 20 Mg Tablet.dr 40 Mg PO DAILY LAST DOSE THIS MORNING NEXT DOSE TOMORROW MORNING TIME: NEXT DOSE DUE:TODAY DATE: TIME: Triamcinolone Acetonide 15 Gm Cream..g. 15 Gm TP PRN LAST DOSE THIS MORNING MAY USE NEEDED TIME: NEXT DOSE DUE:TODAY DATE: TIME: Nystatin 15 Gm Cream..g. 15 Gm TP PRN MAY RESUME DATE: TIME: NEXT DOSE DUE:PRN DATE: TIME: Lortab 10-325 mg Tablet (Hydrocodone/Acetaminophen) 1 Each Tablet 1 Tab PO PRN Q6HRS PRN LAST DOSE 8PM NEXT DOSE 2AM OR NEEDED TIME: NEXT DOSE DUE:TODAY DATE: TIME: Benadryl (Diphenhydramine Hcl) 25 Mg Capsule 25 Mg PO PRN NOT GIVEN TODAY MAY RESUME TIME: NEXT DOSE DUE:TODAY DATE: TIME: Claritin (Loratadine) 10 Mg Tablet 10 Mg PO PRN MAY RESUME NOT GIVEN TODAY NEXT DOSE DUE:TODAY DATE: TIME: Zyrtec (Cetirizine Hcl) 10 Mg Tablet 10 Mg PO PRN NOT GIVEN TODAY MAY RESUME TIME: NEXT DOSE DUE: DATE:TODAY TIME: Adderall Xr 30 Mg Capsule (Dextroamphetamine/Amphetamine) 30 Mg Cap.er.24h 30 Mg PO PRN MAY RESUME DIRECTED DATE: TIME: NEXT DOSE DUE:TODAY DATE: TIME: Xanax (Alprazolam) 1 Mg Tablet 1 Mg PO BID PRN LAST DOSE 8PM NEXT DOSE TOMORROW MORNING TIME: NEXT DOSE DUE: DATE:TODAY TIME: I have reviewed the current psychotropics carefully including drug interactions. Risk benefit ratio favors no change other than as noted in my dictated progress note. Diagnosis: Problems: (1) Bipolar affective disorder, mixed (2) Anxiety disorder (3) Paresthesia of left arm TINY ADDISON MD Mar 23, 2018 18:49
[2018-03-23 19:40] VITALS: BP 120/72
[2018-03-23] MEDS: ALPRAZolam 0.5 MG TABLET PO PRN (20:36)
[2018-03-23] MEDS: LURASIDONE 40 MG TABLET. PO SCH (20:37)
[2018-03-23 23:15] VITALS: BP 109/65
--- NOTE | 2018-03-24 03:15 | PN ---
DATE: SUBJECTIVE: The patient continues to have mild weakness and numbness of the left face, upper or lower extremities. OBJECTIVE: GENERAL: Well-developed, well-nourished white female, not in acute distress. VITAL SIGNS: Blood pressure 109/70, respiratory rate 20, pulse is 58, temperature 97.7, oxygen saturation 96% on room air. HEENT: Normocephalic, atraumatic, otherwise unremarkable. NECK: Supple. Negative for carotid bruit, lymphadenopathy or thyromegaly. LUNGS: Clear to A and P. CARDIOVASCULAR: Regular rate and rhythm, normal S1, S2. ABDOMEN: Soft. Bowel sounds positive. EXTREMITIES: Negative for cyanosis, clubbing or pitting edema. NEUROLOGICAL EXAM: Normal mental status and intact cranial nerves. Motor examination reveals persistent subjective weakness of the left upper and lower extremities. However, the patient could move her left upper extremity intermittently. She also has a subjective hypoesthesia confined to the left upper and lower extremities and face as well with otherwise normal neurological examination and normal extensive neurological workup: Underlying multiple medical problems and psychiatric disorders as outlined above. RECOMMENDATIONS: Continue with current management initiated by Dr. Boone along with rehabilitation M Nash JOSEPH MD DR: DENILSON/jaron JOB#: [id number] / [id number]
[2018-03-24] MEDS: IBUPROFEN 800 MG TABLET. PO PRN (04:05)
[2018-03-24 05:17] VITALS: BP 114/65
[2018-03-24 05:20] VITALS: BP 114/65
[2018-03-24] MEDS: HYDROcodone/APAP 10/325 1 TAB TABLET PO PRN ×2 (06:39→16:02)
--- NOTE | 2018-03-24 08:34 | PN ---
DATE: 03/22/2018 PSYCHIATRIC PROGRESS NOTE This is a late entry 03/22/2018, covers elements not covered in my initial note. SUBJECTIVE: I met with the patient in the evening. Per nursing report, the patient still complains of inability to move her left arm, but nursing staff noted that physical therapy staff had observed her holding the telephone in the left hand and talking when they checked by her room earlier in the day. I have been informed by nursing staff and Dr. Cesar, did see the patient again did not feel a lumber type was indicated at this time, but if symptoms progress this may have to be reassessed. The patient did take the Latuda previous evening and gently states she feels a little better, calmer, less anxious. She is still complaining of paraesthesias left side of her face and weakness left upper arm and left leg. REVIEW OF SYSTEMS: No CV, , GI system symptoms on review. MENTAL STATUS EXAM: Reasonably oriented. Speech coherent, rapid at times, typical for her. Abstraction fair, computation impaired, language function intact. Attention span short. No suicidal or homicidal ideation. No clear psychotic symptoms. IMPRESSION: Probable bipolar 1 disorder mixed, history of conversion disorder, anxiety disorder, unspecified; past history of drug abuse. PLAN: Continue Latuda 40 mg a day. No other change from a psychiatric standpoint. Rest unchanged from initial note. Outpatient followup with Dr. Alonso, psychotherapy, perhaps at the [facility], [facility], Psychiatry Outpatient Clinic and Neurology. TINY ADDISON MD DR: LAMONTE/jaron JOB#: [id number] / [id number]
[2018-03-24] MEDS: ASPIRIN 81 MG TAB.CHEW PO SCH (08:46)
[2018-03-24] MEDS: ACETAMINOPHEN 325 MG TABLET PO PRN (08:52)
[2018-03-24] MEDS: ALPRAZolam 0.5 MG TABLET PO PRN (08:56)
[2018-03-24 10:30] VITALS: BP 114/73
--- NOTE | 2018-03-24 23:39 | DS ---
DATE OF DISCHARGE: HOSPITAL COURSE: The patient was accepted at the [facility] to continue the process of rehabilitation there. She was admitted with left-sided hemiplegia, most likely due to conversion disorder. PHYSICAL EXAMINATION: GENERAL: On examining her this afternoon, she looked well and was clearly in no apparent respiratory distress, pale, but no jaundice, cyanosis, or thyromegaly. No jugular venous distension. No lower limb edema. VITAL SIGNS: Her heart rate was 56, blood pressure 114/73, temperature was 97.9, respiratory rate 20, and oxygen saturation was 97%. EXTREMITIES: Clinical examination showed that she has weakness in the left upper and left lower extremity. DISCHARGE MEDICATIONS: She was discharged to [facility] to continue on Tylenol 650 mg every 6 hours, alprazolam 1 mg 3 times a day, aspirin 81 mg once a day, hydrocodone/APAP 10/325 one tablet every 6 hours, hydrocortisone ____ grams cream applied 3 times a day for itching, ibuprofen 800 mg every 8 hours. She was also discharged on Latuda 40 mg at bedtime. FINAL DISCHARGE DIAGNOSES: 1. Subjective left-sided weakness and paresthesia with no clear neurological evidence of central nervous system pathology. 2. The patient has a history of conversion disorder with similar presentation in the past and normally extensive workup indicating again a psychogenic source with neurological presentation. 3. Multiple psychiatric disorders including anxiety disorder, possible bipolar disorder. 4. Her other medical problems include ovarian cancer, hypertension, and bronchial asthma. RONNIE HAMILTON MD DR: JOHNATHON/jaron JOB#: [id number] / [id number]
--- NOTE | 2018-03-25 01:38 | PN ---
DATE: 03/24/2018 SUBJECTIVE: The patient continued to complain subjectively from weakness, numbness and paresthesia confined to the left face and upper and lower extremities. She denies any other new medical or neurological complaints. OBJECTIVE: GENERAL: Well-developed, well-nourished female, not in acute distress. VITAL SIGNS: Blood pressure 140/65, respiratory rate 20, pulse is 55, temperature 97.7, oxygen saturation 95% on room air. HEENT: Normocephalic, atraumatic, otherwise unremarkable. NECK: Supple. Negative for carotid bruit, lymphadenopathy, JVD or thyromegaly. LUNGS: Clear to A and P. CARDIOVASCULAR: Regular rate and rhythm, normal S1, S2. There is no S3, S4, or murmur. ABDOMEN: Soft. Bowel sounds positive. EXTREMITIES: Negative for cyanosis, clubbing or pitting edema. NEUROLOGICAL EXAM: Mental status: The patient is alert and oriented x 3. Speech is fluent. There is no language dysfunction. Judgment, abstract and thinkings are normal. The patient denies hallucination or delusion. Cranial nerves are intact. Motor examination revealed persistent left-sided weakness, but able to move her left arm and legs mildly. Sensory examination revealed subjectively diminished pinprick and light touch senses over the left face, upper and lower extremities in all dermatomes. Deep tendon reflexes were symmetric without pathology responses. Gait: The patient uses a walker for ambulation. IMPRESSION: 1. Subjective numbness and paresthesia confined to the right; numbness, paresthesia and weakness confined to the left side with normal extensive neurological workup, rule out underlying psychiatric etiology. 2. Multiple psychiatric problems include bipolar 1 disorders, anxiety disorders. RECOMMENDATIONS: The patient will be transferred to a rehab hospital today. Otherwise, continue with current medical and psychiatric care. M Nash JOSEPH MD DR: DENILSON/jaron JOB#: [id number] / [id number]
--- NOTE | 2018-03-25 03:46 | PN ---
DATE: 03/24/2018 SUBJECTIVE: The patient is walking better. She apparently has worked with Physical Therapy, has been using her left upper extremity and walking with a walker with standby assist. We are waiting for the placement to [facility] to continue the process of rehabilitation there. OBJECTIVE: GENERAL: On examining her today, she looked well and was clearly in no apparent respiratory distress. VITAL SIGNS: Her heart rate was 56, blood pressure 114/73, temperature was 97.9, respiratory rate 20, and oxygen saturation was 97%. The rest of clinical examination is stable. She continued to claimed that she has weakness in his left upper and left lower extremity, although she was noted multiple times that she is able to use her left upper extremity. LABORATORY DATA: Her lab work showed a white cell count of 5400, hemoglobin 11.5, hematocrit 34, MCV 95, and platelet count of 140,000. Her serum sodium 144, potassium 4.2, chloride 110, bicarbonate 26, anion gap of 8, BUN 19, creatinine 1, estimated GFR was 58 mL per minute, her glucose 103, calcium was 8.3. ASSESSMENT: 1. Subjective left-sided weakness and paraesthesia with no clear neurological evidence of central nervous system pathology. The patient has a history of conversion disorder with similar presentation in the past and normal extensive workup that include again psychogenic source with neurological presentation at this time. The patient has multiple psychiatric disorders including anxiety and possible bipolar disorder. 2. She has multiple other medical problems including; A. Ovarian cancer. B. Hypertension. C. Bronchial asthma. PLAN: To await placement at [facility]. RONNIE HAMILTON MD DR: JOHNATHON/jaron JOB#: [id number] / [id number]
== END 2018-03-24 16:15 | DRG 57 ==
LOC: ER 12:19 → 1 SOUTH 16:00
PROVIDERS: ADMIT Neuromusculoskeletal Medicine & OMM; ATTEND Neuromusculoskeletal Medicine & OMM
DX: G81.94 Hemiplegia, unspecified affecting left nondominant side (principal); F31.60 Bipolar disorder, current episode mixed, unspecified; F44.4 Conversion disorder with motor symptom or deficit; F41.9 Anxiety disorder, unspecified; I10 Essential (primary) hypertension; J45.909 Unspecified asthma, uncomplicated; R20.0 Anesthesia of skin; R20.2 Paresthesia of skin; R07.9 Chest pain, unspecified; F90.9 Attention-deficit hyperactivity disorder, unspecified type; Z85.43 Personal history of malignant neoplasm of ovary; Z86.73 Personal history of transient ischemic attack (TIA), and cerebral infarction without residual deficits; Z90.49 Acquired absence of other specified parts of digestive tract; Z90.710 Acquired absence of both cervix and uterus; Z91.041 Radiographic dye allergy status
CPT/HCPCS: 36415; 70450; 71045; 80048; 80053; 81001; 82947; 83690; 83880; 84484; 85025; 85379; 93005; 97110; 97112; 97530; 97535; 99285-25